=== PATIENT | male | born 1985 | race Two or more races ===

== ENCOUNTER 2024-08-02 09:03 | Emergency (ER) | payer OTHER, SELFPAY ==
[2024-08-02 09:05] VITALS: BP 122/57
--- NOTE | 2024-08-02 09:32 | ED.GENMED ---
History of Present Illness
General
Chief Complaint: Back Pain
Source: patient
Exam Limitations: none
Time Seen by Provider: 08/02/24 09:15
History of Present Illness
History of Present Illness:
38-year-old male complaining of severe lower right midline back pain. Very positional in nature. [place] a small pop as he bent over 2 days ago. May have had some tightness in the back after going to the gym days before. Denies numbness tingling
weakness bowel or bladder issues fever. Denies abdominal pain nausea or vomiting. No urinary symptoms. Patient has only taken 1 ibuprofen 2 days ago.
Past History
Past History
ED Past Medical History: None
ED Past Surgical History: Appendectomy
Review of Systems
Review of Systems
All Other Systems: Not applicable
Constitutional: Denies fever or chills
ABD/GI: Reports no symptoms
Neurological: Denies dizzy, weakness or numbness
Phy Exam
Physical Exam
Physical Exam:
GENERAL: Alert and oriented in no apparent distress
EYE: Orbits normal.
NECK: Supple, no significant adenopathy.
ENT: Pharynx without erythema
CARDIAC: Regular rate and rhythm without any obvious murmurs.
LUNGS: Clear breath sounds,normal
ABDOMEN: Soft, without focal tenderness or distention
NEUROLOGICAL: Alert and oriented , grossly non-focal. Good lower extremity strength. Patellar reflexes equal bilaterally. Negative straight leg raising. Patient witnessed ambulating and ambulates well with a very slight limp secondary to pain
SKIN: Warm and dry, no rash or lesion, no discoloration, skin intact.
MUSCULOSKELETAL: No edema,no deformity.Good color. No spinal tenderness. No paraspinal point tenderness. No erythema or swelling. Significant decreased flexion at the hip with standing. Able to toe walk. Good lower extremity strength.
PSYCH: Normal and appropriate interaction.
Course
Orders/Labs/Results
Orders:
Orders
08/02/24 09:31
Ketorolac [Toradol] 60 mg IM NOW STA
08/02/24 10:02
Lumbar Spine, 2 or 3 View [CR Lumbar Spine 2 Or 3 Views] Urgent
Comment:
Reason For Exam: Nontraumatic low back pain
Vital Signs
Initial and Last Documented VS:
Initial Vital Signs
Temp Pulse Resp BP Pulse Ox
98.4 F 87 18 122/57 98
08/02/24 09:05 08/02/24 09:05 08/02/24 09:05 08/02/24 09:05 08/02/24 09:05
Last Documented Vital Signs
Temp Pulse Resp BP Pulse Ox
98.4 F 66 16 121/74 98
08/02/24 09:05 08/02/24 10:51 08/02/24 10:51 08/02/24 10:51 08/02/24 10:51
MDM/Problems Addressed
Differential Diagnosis Includes:
Patient's symptoms very musculoskeletal in nature. No acute trauma. No indication for radiologic testing although they were offered. Anti-inflammatories muscle relaxers and follow-up.
*Pulse Oximetry
Patient hypoxic: no
*Critical Care Note
Total Time (30-74mins, 75-104mins- exclusive of procedures): Not Applicable
Update Note
Update Note:
Patient rediscussed and requesting an x-ray. Discussed the benefit of x-ray but patient would still like it done.
Mild SI and hip arthritis. Otherwise unremarkable. Copy of x-ray given to patient
ED Attending Note
-
Portions of this chart may have been created with voice recognition software.� Occasional wrong word or��sound alike� substitutions may have occurred due to the inherent limitations of voice recognition software.
Discharge Plan
Departure
Patient Disposition: Home (Routine Discharge)
Date of Disposition: 08/02/24
Time of Disposition: 09:39
Patient with high blood pressure during this ER visit?: Yes
Discharge Problem:
Low back strain
Instructions: Low Back Pain (DC), BLOOD PRESSURE
Prescriptions:
New
cyclobenzaprine 10 mg tablet
10 mg PO TID PRN (Reason: muscle spasm) Qty: 14 0RF
Activity Restrictions/Additional Instructions:
Ibuprofen 600 mg 3 times per day with food
Flexeril as a muscle relaxer. The prescription was sent to your pharmacy.
Warm heat or cold whatever feels better
Follow-up with your physician in 2 to 3 days
Return sooner with increased pain numbness tingling weakness abdominal pain fever or any other concerning symptoms
Interventions
Interventions:
*Risk Screen - Suicide Last Done: 08/02/24 09:05
*General Assessment Last Done: 08/02/24 09:05
*Neglect/Abuse Screening Last Done: 08/02/24 09:05
ED- Fall Risk Assessment Last Done: 08/02/24 10:51
*ED COVID-19 Vaccine History Last Done: 08/02/24 10:51
*Nursing Disposition Last Done: 08/02/24 10:51
ED-Musculoskeletal Assessment Last Done: 08/02/24 10:51
Discharge Date and Time
Discharge Date/Time: 08/02/24 10:52
Print Language: ESTONIAN
[2024-08-02] MEDS: TORADOL 60 MG IM (09:35)
[2024-08-02 10:51] VITALS: BP 121/74
== END 2024-08-02 10:52 | disposition home or self-care (01) ==
LOC: EMR 09:03
PROVIDERS: EMERGENCY PHYSICIAN Emergency Medicine
DX: M54.50 Low back pain, unspecified (principal); Z90.49 Acquired absence of other specified parts of digestive tract; M16.0 Bilateral primary osteoarthritis of hip; M46.1 Sacroiliitis, not elsewhere classified
CPT/HCPCS: 96372; 99284; 72100